=== PATIENT | female | born 1970 | race American Indian/Alaskan Native ===

== ENCOUNTER 2020-09-12 08:43 | Outpatient (CLI) | payer MEDICAID, OTHER ==
--- NOTE | 2020-09-12 10:46 | Mammography Report ---
BILATERAL DIGITAL DIAGNOSTIC MAMMOGRAM WITH CAD , 09/12/2020 RIGHT LIMITED BREAST ULTRASOUND CLINICAL INFORMATION / INDICATION: This is a 6 month follow-up mammogram and ultrasound to evaluate c ystic mass in the right medial breast. ABNORMAL MAMMO R92.8 TECHNIQUE: Digital bilateral mammographic imaging was performed. Spot compression views were obtained . Limited ultrasound was performed. This examination was interpreted with the benefit of Computer-Aid ed Detection (CAD) analysis. COMPARISON: Prior outside mammogram and ultrasound 04/30/2020 and 06/26/2020 right breast ultrasound. FINDINGS: Breast Density: The breasts are heterogeneously dense, which may obscure small masses. MAMMOGRAPHIC FINDINGS: No dominant mass, suspicious calcifications, or architectural distortion in th e left breast. As noted on the prior exam, there continues to be a lobulated mass in the medial right breast at approximately 3:00. The mass measures approximately 1.8 cm in greatest diameter. There has not been significant interval change. ULTRASOUND FINDINGS: Targeted ultrasound evaluation was performed of the area of interest. Sonograp hic evaluation of the right breast at 3:00 continues to show a cystic mass measuring 1.8 x 0.6 cm. It is difficult to determine if this is multiple adjacent simple cysts or if this could possibly repres ent a singular cystic mass with internal septations. No definite vascularity is noted, which would fa vor multiple adjacent simple cysts. IMPRESSION: Stable appearance of cystic mass in the medial right breast at 3:00. Differential diagnos is includes a cystic mass such as papillary cystic neoplasm versus multiple adjacent simple cysts. I would recommend cyst aspiration to exclude the low possibility of a papillary cystic neoplasm. Follow up recommendation: Cyst aspiration BI-RADS Category 4: Suspicious for Malignancy. A "normal" or negative report should not discourage follow up or biopsy of a clinically significant f inding. A written summary of these findings will be mailed to the patient. The patient will be entered into a mammography reporting system which will generate a reminder letter for the patient's next appointmen t at the appropriate interval. According to the [employer], yearly mammograms are recommended starting at age 40 and continuing as long as a woman is in good health. Breast MRI is recommended for women with an conor roximately 20-25% or greater lifetime risk of breast cancer, including women with a strong family his tory of breast or ovarian cancer and women who have been treated for Hodgkin's disease. Signer Name: Robyn Cardona MD Signed: 09/12/2020 10:42 AM Workstation Name: [id number]
--- NOTE | 2020-09-12 10:48 | Ultrasound Report ---
Please see separately transcribed diagnostic mammogram report for 09/12/2020 which includes right [address] ultrasound report, as a combined report. Signer Name: Robyn Cardona MD Signed: 09/12/2020 10:44 AM Workstation Name: [id number]
== END 2020-09-12 08:44 | disposition home or self-care (01) ==
LOC: SPVWC 08:43
PROVIDERS: ATTEND Surgery
DX: N63.41 Unspecified lump in right breast, subareolar (principal); N60.01 Solitary cyst of right breast
CPT/HCPCS: 77066

== ENCOUNTER 2020-10-16 08:21 | Outpatient (CLI) | payer MEDICAID ==
--- NOTE | 2020-10-16 09:43 | Ultrasound Report ---
ULTRASOUND-GUIDED FINE NEEDLE ASPIRATION RIGHT BREAST INDICATION: 09/12/2020. FINDINGS: Informed consent was obtained. The cyst within the right breast at the 3:00 position, 7 cm from the n ipple, was identified with ultrasound. The overlying skin was cleansed with chloro prep and local ane sthesia was obtained with a 1% lidocaine solution. Under ultrasound guidance an 18-gauge needle was a dvanced into the lesion and aspiration was performed. A total of 3 ml of clear straw-colored fluid wa s aspirated. A biopsy marker was not placed. No sample was sent for analysis. Patient tolerated the procedure well and no immediate complications were identified. IMPRESSION: Technically successful ultrasound-guided fine-needle aspiration of right breast cyst at the 3:00 posi tion. A total of 3 ml of clear straw fluid was aspirated. A biopsy marker was not placed. No sample w as sent for analysis. Signer Name: Srinivas Blankenship MD Signed: 10/16/2020 9:38 AM Workstation Name: [id number]
== END 2020-10-16 08:22 | disposition home or self-care (01) ==
LOC: SPVWC 08:21
PROVIDERS: ATTEND Surgery
DX: N60.01 Solitary cyst of right breast (principal); R92.8 Other abnormal and inconclusive findings on diagnostic imaging of breast
CPT/HCPCS: 10005